=== PATIENT | female | born 1960 | race Native Hawaiian/Other Pacific Islander ===

== ENCOUNTER 2017-12-27 06:41 | Day surgery (SDC) | payer BC ==
[2017-12-27 07:25] VITALS: BMI 25.4
[2017-12-27] MEDS ORDERED: Propofol 10 mg/ml Inj (20 ML) ONE (08:41)
[2017-12-27] MEDS ORDERED: Lactated Ringer's 1,000 ML IV ONE ×2 (08:42)
[2017-12-27 08:46] VITALS: O2SAT 100
[2017-12-27] MEDS ORDERED: Lactated Ringer's 500 ML IV SCH (09:00)
[2017-12-27 09:32] VITALS: TEMP 98.4
[2017-12-27 10:26] VITALS: BP 117/64; PULSE 64; RESP 19
== END 2017-12-27 10:05 | disposition home or self-care (01) ==
LOC: C.ENDO 06:41
PROVIDERS: ATTEND Specialist
DX: Z12.11 Encounter for screening for malignant neoplasm of colon (principal); K64.0 First degree hemorrhoids; K58.9 Irritable bowel syndrome, unspecified; K52.9 Noninfective gastroenteritis and colitis, unspecified
CPT/HCPCS: 45380; 88305; J2704; J7120